=== PATIENT | female | born 1995 | race Caucasian/White ===

== ENCOUNTER 2021-01-07 18:39 | Emergency (ER) | payer OTHER ==
[2021-01-07] MEDS ORDERED: NAPROXEN500 MG PO (21:24)
[2021-01-07] MEDS ORDERED: BACLOFEN 10MG T10 MG PO (21:24)
== END 2021-01-07 21:55 | disposition home or self-care (01) ==
LOC: FER 18:39
DX: M54.2 Cervicalgia (principal); R51.9 Headache, unspecified; Z88.2 Allergy status to sulfonamides; Z91.040 Latex allergy status; V49.40XA Driver injured in collision with unspecified motor vehicles in traffic accident, initial encounter; Y92.410 Unspecified street and highway as the place of occurrence of the external cause
CPT/HCPCS: 70450; 72125; 96372; J1100; J1885